=== PATIENT | female | born 1985 | race Two or more races ===

== ENCOUNTER 2022-11-30 15:05 | Emergency (ER) | payer OTHER ==
[~2022-11-30] VITALS: Ht 165.1 cm; Wt 68.0 kg
[2022-11-30] MEDS ORDERED: ZOVIRAX800 MG PO (15:50)
[2022-11-30] MEDS ORDERED: FAMCICLOVIR500 MG PO (17:02)
[2022-11-30] MEDS ORDERED: DICLOFENAC SODI75 MG PO (17:02)
[2022-11-30] MEDS ORDERED: NEURONTIN300 MG PO (17:02)
== END 2022-11-30 17:17 | disposition home or self-care (01) ==
LOC: ER 15:05
DX: B02.9 Zoster without complications (principal)

== ENCOUNTER 2024-05-18 11:14 | Emergency (ER) | payer OTHER ==
[~2024-05-18] VITALS: Ht 165.1 cm; Wt 70.3 kg
[~2024-05-18 11:14] MED LIST: DICLOFENAC SODI75 MG PO; FAMCICLOVIR500 MG PO; NEURONTIN300 MG PO; ZOVIRAX800 MG PO
[2024-05-18] MEDS ORDERED: ORPHENADRINE CITRATE 30 MG/ML AMPUL ONE (13:12)
[2024-05-18] MEDS ORDERED: KETOROLAC TROMETHAMINE 60 MG VIAL IM ONE ×2 (13:13→13:15)
[2024-05-18] MEDS ORDERED: ORPHENADRINE CITRATE 30 MG/ML AMPUL IM ONE (13:15)
== END 2024-05-18 14:48 | disposition home or self-care (01) ==
LOC: ER 11:16
DX: R07.81 Pleurodynia (principal)

== ENCOUNTER → 2024-06-06 15:05 | Outpatient (CLI) | payer OTHER | END | disposition home or self-care (01) | LOC: RAD 15:05 | DX: M25.532 Pain in left wrist (principal) ==

== ENCOUNTER 2024-07-19 08:51 | Outpatient (CLI) | payer OTHER | END 2024-07-19 08:57 | disposition home or self-care (01) | LOC: RAD 08:51 | DX: S69.90XA Unspecified injury of unspecified wrist, hand and finger(s), initial encounter (principal) ==

== ENCOUNTER 2025-07-30 14:42 | Outpatient (CLI) | payer OTHER | END 2025-07-30 14:47 | disposition home or self-care (01) | LOC: SONOGRAMA 14:42 | DX: M25.511 Pain in right shoulder (principal) ==